=== PATIENT | female | born 1950 | race Caucasian/White ===

== ENCOUNTER 2024-11-10 08:45 | Outpatient (CLI) | payer MEDICARE, SELFPAY ==
--- NOTE | 2024-11-10 09:00 | CRLHL7_ITS ---
For Patients: As a result of the 21st Century Cures Act, medical imaging exams and procedure reports are released immediately into your electronic medical record. You may view this report before your referring provider. If you have questions, please contact your health care provider. Indication: PELVIC PAIN ESPECIALLY WITH LAYING DOWN FLAY, HX OF PELVIC FRACTURE 7+ YEARS AGO Technique: Routine noncontrast CT pelvis performed. Please note that all CT scans at this facility use dose modulation, iterative reconstruction, and/or weight-based dosing when appropriate to reduce radiation dose to as low as reasonably achievable. Comparison: MRI lumbar spine 11/08/2019, MRI pelvis 01/07/2018 Findings: Postoperative changes of posterior lumbar fusion L3 through S1 along with anterior discectomy at these levels. Anterior screw augmentation noted at L3 and S1. Alignment is similar to the prior MRI. No vertebral body compression fracture. Chronic bilateral sacral fractures. Chronic fracture of the right iliac wing. Chronic fractures of the pubic rami bilaterally. No acute fracture. Femoral neck is intact bilaterally. Degenerative changes at the sacroiliac joints and chronic degenerative changes at the symphysis pubis with chondrocalcinosis. Old right 10th and 11th rib fractures. Atherosclerotic changes. Incidental simple right renal cyst measures 2.8 cm. Excess stool in the colon. Impression: Multifocal chronic fractures noted and multilevel postop changes lumbar spine. No acute fracture, hardware complication or soft tissue mass. Constipation incidentally noted. Please note that all CT scans at this facility use dose modulation, iterative reconstruction, and/or weight-based dosing when appropriate to reduce radiation dose to as low as reasonably achievable. Dictated by Nick Velázquez MD @ 11/10/2024 3:01:56 PM (Electronically Signed)
== END 2024-11-10 08:46 | disposition home or self-care (01) ==
LOC: CT 08:49
PROVIDERS: PCP Nurse Practitioner Family; Visit Provider Physician Assistant Surgical
DX: R10.2 Pelvic and perineal pain (principal); M81.0 Age-related osteoporosis without current pathological fracture
CPT/HCPCS: 72192

== ENCOUNTER 2025-02-15 10:23 | Outpatient (RCR) | payer MEDICARE, SELFPAY ==
[2025-02-15 10:37] VITALS: BP 106/56; PULSE 63; RESP 15; TEMP 36.7; O2SAT 96
== END 2025-08-14 23:59 | disposition home or self-care (01) ==
LOC: CCIC 10:23
PROVIDERS: PCP Nurse Practitioner; Visit Provider Clinical Nurse Specialist
DX: M81.0 Age-related osteoporosis without current pathological fracture (principal); Z79.83 Long term (current) use of bisphosphonates
CPT/HCPCS: 96365; J3489